=== PATIENT | female | born 1985 | race Caucasian/White ===

== ENCOUNTER 2017-07-26 15:09 | Outpatient (CLI) | payer OTHER ==
--- NOTE | 2017-07-27 11:31 | XRAY Report ---
RIGHT HUMERUS, TWO VIEWS: 07/26/2017 HISTORY: Right upper arm pain. Two views of the right humerus show no evidence of fracture, periosteal reaction, bone destruction, r adiopaque foreign body or other abnormality. Included portions of the right shoulder and elbow joint s are unremarkable. IMPRESSION: NEGATIVE RIGHT HUMERUS. JOB #: [id number] EXT JOB #:[id number]
== END 2017-07-26 15:10 | disposition home or self-care (01) ==
LOC: DI 15:09
PROVIDERS: ATTEND Specialist
DX: M79.621 Pain in right upper arm (principal)

== ENCOUNTER 2018-04-08 08:00 | Outpatient (CLI) | payer OTHER ==
[2018-04-08 18:56] LABS: CHOL/HDL RATIO 2.4 (<4.4); CHOLESTEROL 152 mg/dL; GLUCOSE 69 mg/dL (70-100); HDL CHOLESTEROL 63 mg/dL; LDL CHOLESTEROL,CALCULATED 73 mg/dL; LDL/HDL RATIO 1.2 (<4.4); VLDL CHOLESTEROL 16 mg/dL
[2018-04-08 18:58] LABS: HB2 TOTAL 13.8 g/dL; HEMOGLOBIN A1C 0.42 g/dL; HEMOGLOBIN A1C % 4.9 % (4.6-6.2)
== END 2018-04-08 08:01 | disposition home or self-care (01) ==
LOC: LAB.WCP 08:00
PROVIDERS: ATTEND Registered Nurse
DX: Z01.419 Encounter for gynecological examination (general) (routine) without abnormal findings (principal)
CPT/HCPCS: 36415; 80061; 82947; 83036; 83721; 84443

== ENCOUNTER 2020-11-06 12:33 | Outpatient (CLI) | payer OTHER ==
--- NOTE | 2020-11-06 14:32 | XRAY Report ---
PROCEDURE: Lumbar Spine 2 View INDICATIONS: THORACIC BACK PAIN, CHRONIC LUMBAR PAIN TECHNIQUE: 2 views of the lumbar spine were acquired. COMPARISON: None. FINDINGS: Bones: 5 [id number] vertebrae are present. There is mild diffuse leftward curvature of the lum bar spine, and otherwise normal bony alignment. No vertebral body compression fractures. No suspici ous bony lesions. Soft tissues: Overlying bowel gas pattern is normal. No suspicious soft tissue calcifications. IMPRESSION: No acute fracture. No osseous lesion. If symptoms and/or clinical suspicion for patholog y continue, further assessment with repeat plain films, or advanced imaging (e.g., CT, MRI, or bone s can) is recommended for further assessment. Reviewed by: Dorinda Abdalla MD on 11/06/2020 2:31 PM PDT Approved by: Dorinda Abdalla MD on 11/06/2020 2:31 PM PDT Station ID: [id number]
--- NOTE | 2020-11-06 14:32 | XRAY Report ---
PROCEDURE: Thoracic Spine 2 View INDICATIONS: THORACIC BACK PAIN, CHRONIC LUMBAR PAIN TECHNIQUE: 3 views of the thoracic spine were acquired. COMPARISON: None. FINDINGS: Bones: No fractures or dislocations. No suspicious bony lesions. Visualized ribs are intact. Multil evel endplate osteophytes throughout the thoracic spine. Soft tissues: No paravertebral stripe thickening. IMPRESSION: Multilevel degenerative disc disease. No acute fracture. No osseous lesion. If symptoms and/or clinic al suspicion for pathology continue, further assessment with repeat plain films, or advanced imaging (e.g., CT, MRI, or bone scan) is recommended for further assessment. Reviewed by: Dorinda Abdalla MD on 11/06/2020 2:31 PM PDT Approved by: Dorinda Abdalla MD on 11/06/2020 2:31 PM PDT Station ID: [id number]
== END 2020-11-06 12:34 | disposition home or self-care (01) ==
LOC: DI.N 12:33
PROVIDERS: ATTEND Family Medicine
DX: M51.34 Other intervertebral disc degeneration, thoracic region (principal); M54.5 Low back pain; M41.9 Scoliosis, unspecified

== ENCOUNTER 2022-04-24 09:39 | Emergency (ER) | payer OTHER ==
[2022-04-24] MEDS ORDERED: KETOROLAC 60 MG/2 ML VIAL IM STA (10:12)
[2022-04-24] MEDS ORDERED: oxyCODONE 5 MG TABLET PO STA (10:12)
[2022-04-24] MEDS ORDERED: DEXAMETHASONE 10 MG/ML VIAL PO STA (10:12)
[2022-04-24 10:28] LABS: BILIRUBIN,URINE NEGATIVE (NEGATIVE); GLUCOSE, URINE (UA) NEGATIVE (NEGATIVE); KETONES,URINE (UA) NEGATIVE (NEGATIVE); LEUKOCYTE ESTERASE, URINE NEGATIVE (NEGATIVE); NITRITE,URINE NEGATIVE (NEGATIVE); OCCULT BLOOD,URINE SMALL (NEGATIVE); PROTEIN,URINE NEGATIVE (NEGATIVE); UROBILINOGEN,URINE 0.2 (NORMAL) E.U./dL (NORMAL)
[2022-04-24 10:33] LABS: CLARITY,URINE HAZY (CLEAR)
[2022-04-24 10:34] LABS: HCG UR QUAL NEGATIVE
[2022-04-24 10:46] LABS: BACTERIA,URINE Few /HPF (None Seen); RBC,URINE 0-5 /HPF (0-5); SQUAMOUS EPITHELIAL CELL,UR MANY Squamous (<= Few); WBC,URINE 0-3 /HPF (0-5)
--- NOTE | 2022-04-24 11:35 | ED Physician Documentation ---
PD HPI BACK PAIN - Stated complaint Stated Complaint: LOWER BACK PX - Chief complaint Chief Complaint: Back Pain - History obtained from History obtained from: Patient - History of Present Illness Timing - details: Gradual onset Pain level max: 9 Pain level now: 9 Location: Lower, Left Quality: Pain, Spasm, Sharp, Similar to prior episodes Associated symptoms: No: Fever, Weakness, Numbness, Incontinent of urine, Unable to urinate, Hematuria, Incontinent of stool Improves with: Rest Worsened by: Movement Contributing factors: No: Trauma, Anticoagulated, Cancer, IVDA - Additional information Additional information: Patient is a 36-year-old female with left lower back pain. This been ongoing for several years, but worsening over the past several days. She has used Flexeril in the past but this did not help today. Does not recall any significant injury but does heavy lifting at work. The pain radiates down the left leg. No loss of bowel or bladder control. Better with rest, worse with movement. No trauma. No IV drug use. Review of Systems Constitutional: denies: Fever, Chills Throat: denies: Sore throat Cardiac: denies: Chest pain / pressure, Palpitations GI: denies: Vomiting, Diarrhea PD PAST MEDICAL HISTORY - Past Medical History Past Medical History: Yes Musculoskeletal: Chronic back pain - Past Surgical History Past Surgical History: Yes Ortho: Other - Present Medications Home Medications: Ambulatory Orders Medication Instructions Recorded Confirmed Cyclobenzaprine [Flexeril] 10 mg PO Q8HR PRN 04/24/22 04/24/22 Meloxicam [Mobic] 7.5 mg PO BID PRN #20 tablet 04/24/22 Norethindrone 1 tab PO DAILY 04/24/22 04/24/22 Oxycodone HCl/Acetaminophen 1 - 2 each PO Q6H PRN #14 tablet 04/24/22 [Percocet 5-325 mg Tablet] predniSONE [Deltasone] 10 mg PO [id number] #42 tab 04/24/22 - Allergies Allergies/Adverse Reactions: Allergies Allergy/AdvReac Type Severity Reaction Status Date / Time almond Allergy Rash Verified 04/24/22 09:47 Fish Containing Products Allergy Anaphylaxis Verified 04/24/22 09:47 shellfish derived Allergy Anaphylaxis Verified 04/24/22 09:47 - Social History Does the pt smoke?: No Smoking Status: Never smoker Does the pt drink ETOH?: No Does the pt have substance abuse?: No - Immunizations Immunizations are current?: Yes PD ED PE NORMAL - Vitals Vital signs reviewed: Yes - General General: Alert and oriented X 3, No acute distress - HEENT HEENT: Moist mucous membranes - Neck Neck: Supple, no meningeal sign - Cardiac Cardiac: RRR, Strong equal pulses - Respiratory Respiratory: No respiratory distress, Clear bilaterally - Abdomen Abdomen: Soft, Non tender, Non distended - Back Back: No spinal TTP, Other (no midline TTP, no spasm, TTP left low sacrum. NVI. ) - Derm Derm: Warm and dry - Extremities Extremities: No edema, No calf tenderness / cord - Neuro Neuro: Alert and oriented X 3, sleep technologist 2-12 intact, No motor deficit, No sensory deficit, Normal speech, Other (Normal bilateral lower extremity patellar and ankle jerk reflexes. Normal great toe extension bilaterally. no saddle anesthesia) - Psych Psych: Normal mood, Normal affect Results - Vitals Vitals: Vital Signs - 24 hr 04/24/22 04/24/22 09:42 11:44 Temperature 36.4 C L Heart Rate 96 78 Respiratory 16 16 Rate Blood Pressure 174/105 H 144/97 H O2 Saturation 100 100 - Labs Labs: Laboratory Tests 04/24/22 10:20 Urine Color YELLOW Urine Clarity HAZY Urine pH 6.0 Ur Specific Dixon 1.010 Urine Protein NEGATIVE Urine Glucose (UA) NEGATIVE Urine Ketones NEGATIVE Urine Occult Blood SMALL H Urine Nitrite NEGATIVE Urine Bilirubin NEGATIVE Urine Urobilinogen 0.2 (NORMAL) Ur Leukocyte Esterase NEGATIVE Urine RBC 0-5 Urine WBC 0-3 Ur Squamous Epith Cells MANY Squamous H Urine Bacteria Few Ur Microscopic Review INDICATED Urine Culture Comments NOT INDICATED Urine HCG, Qual NEGATIVE PD MEDICAL DECISION MAKING - ED course Complexity details: reviewed results, re-evaluated patient, considered differential (No cauda equina, no spinal epidural abscess, no fracture, no aortic dissection or evidence of aneursym rupture), d/w patient ED course: 36-year-old female with left-sided sciatica. Will place on steroids and pain medication for home as well as anti-inflammatories. Neurovascular intact. Ambulating without difficulty. Has had this condition for years. No indication for emergent imaging. No evidence of cauda equina, epidural abscess. Patient counseled regarding signs and symptoms for which I believe and urgent re- evaluation would be necessary. Patient with good understanding of and agreement to plan and is comfortable going home at this time This document was made in part using voice recognition software. While efforts are made to proofread this document, sound alike and grammatical errors may occur. Departure - Departure Disposition: 01 Home, Self Care Clinical Impression: Sciatica Qualifiers: Laterality: left Qualified Code(s): M54.32 - Sciatica, left side Condition: Good Instructions: ED Sciatica Follow-Up: Alix Nicolas PA [Primary Care Provider] - Within 1 week Prescriptions: predniSONE [Deltasone] 10 mg PO [id number] #42 tab Meloxicam [Mobic] 7.5 mg PO BID PRN #20 tablet PRN Reason: Pain Oxycodone HCl/Acetaminophen [Percocet 5-325 mg Tablet] 1 - 2 each PO Q6H PRN #14 tablet PRN Reason: pain Comments: Your prescriptions were sent to [facility] in [place]. Please use the medications as prescribed. Please follow-up with your doctor for further care. Please return if you worsen. I am prescribing a short course of narcotic pain medication for you. These are potentially dangerous and addictive medications that should be used carefully. These medications may constipate you. Take an sgsu-rzw-spurrvi stool softener (docusate) twice daily with plenty of water while taking these medications. If you go 24 hours without a bowel movement, take [id number] miralax, per package instructions. Do not drink or drive while taking these medications. If you received narcotic or sedating medications while in the emergency department, do not drive for 24 hours. Store this medication in a safe, secure place and out of reach of children. It is a violation of federal law to give or sell this medication to another person or to use in a manner other than prescribed. The ED will not refill narcotic prescriptions, including prescriptions lost or stolen. To dispose of unwanted medications: 1. [facility] at [address] in [place] has a medication drop box. They accept prescription medications (in pill form) Wednesday through Wednesday 9:00 a.m. to 5:00 p.m. 2. The [facility] [employer] accepts prescription medications (in pill form only) for disposal year round. Call for more information. 3. Contact the [facility] for the next [facility] sponsored prescription drug collection event. , [phone], or [phone]; Forms: Activity restrictions Discharge Date/Time: 04/24/22 11:46
[2022-04-24 11:46] VITALS: BP 144/97
== END 2022-04-24 11:46 | disposition home or self-care (01) ==
LOC: ED 09:39
DX: M54.32 Sciatica, left side (principal)
CPT/HCPCS: 81001; 81025; 96372; 99283; 99284; A9270; 81003; 87086